=== PATIENT | male | born 1940 | race Caucasian/White ===

== ENCOUNTER → 2016-06-11 | Outpatient (REF) | payer MEDICARE ==
[2016-06-11 13:59] LABS: FERRITIN 699 NG/ML (26-388); PERCENT SATURATION 37.2 % (19.7-37.4); TOTAL IRON BINDING CAPACITY 290 UG/DL (250-450); TOTAL PROTEIN 6.7 GM/DL (6.4-8.2)
[2016-06-13 12:29] LABS: ALBUMIN 3.82 GM/DL (3.29-5.55); GAMMA GLOBULIN % 18.7 % (11.1-18.8)
== END ==
LOC: M LAB REF 12:23
PROVIDERS: ATTEND Internal Medicine Medical Oncology
DX: D64.9 Anemia, unspecified (principal)

== ENCOUNTER → 2016-07-01 | Outpatient (REF) | payer MEDICARE ==
[2016-07-01 18:10] LABS: RETIC HEMOGLOBIN CONTENT CHr 32.7 PG (24-36); RETICULOCYTE % ADVIA2120 1.3 % (0.5-1.5)
== END ==
LOC: M LAB REF 16:42
PROVIDERS: ATTEND Internal Medicine Medical Oncology
DX: D46.9 Myelodysplastic syndrome, unspecified (principal); D64.9 Anemia, unspecified

== ENCOUNTER → 2016-08-28 | Outpatient (REF) | payer MEDICARE ==
[~2016-08-28] MED LIST: AMLO10TA2 PO; ASPI81TA85 PO; ATOR1TAB21 PO; MULTTAB23 PO; OLME40TA PO; OMEP40CA2 PO; PROBCAP14 PO; TOPR100T PO; VITA-115 PO; XARE20TA PO
== END ==
LOC: M LAB REF 16:22
PROVIDERS: ATTEND Internal Medicine Medical Oncology
DX: D46.9 Myelodysplastic syndrome, unspecified (principal)

== ENCOUNTER → 2016-10-16 | Outpatient (REF) | payer MEDICARE | LOC: M LAB REF 13:30 | PROVIDERS: ATTEND Internal Medicine Medical Oncology | DX: D46.9 Myelodysplastic syndrome, unspecified (principal); D64.9 Anemia, unspecified ==

== ENCOUNTER 2016-10-18 08:12 | Outpatient (CLI) | payer MEDICARE ==
[~2016-10-18 08:12] MED LIST changes: +ACETAMINOPHEN TAB 650MG DOSE (2X325MG) PO SCH; -AMLO10TA2 PO; -ASPI81TA85 PO; -ATOR1TAB21 PO; -MULTTAB23 PO; -OLME40TA PO; -OMEP40CA2 PO; -PROBCAP14 PO; -TOPR100T PO; -VITA-115 PO; -XARE20TA PO; +diphenhydrAMINE 25 MG CAP PO SCH
[2016-10-18] MEDS ORDERED: TOPR100T PO (08:53)
[2016-10-18] MEDS ORDERED: AMLO10TA2 PO (08:54)
[2016-10-18] MEDS ORDERED: OLME40TA PO (08:55)
[2016-10-18] MEDS ORDERED: XARE20TA PO (09:06)
[2016-10-18] MEDS ORDERED: PROBCAP14 PO (09:07)
[2016-10-18] MEDS ORDERED: ASPI81TA85 PO (09:07)
[2016-10-18] MEDS ORDERED: MULTTAB23 PO (09:08)
[2016-10-18] MEDS ORDERED: ATOR1TAB21 PO (09:09)
[2016-10-18] MEDS ORDERED: OMEP40CA2 PO (09:10)
[2016-10-18] MEDS ORDERED: VITA-115 PO (09:13)
== END 2016-10-18 13:40 | disposition home or self-care (01) ==
LOC: M INFU 08:12
PROVIDERS: ATTEND Internal Medicine Medical Oncology
DX: D46.9 Myelodysplastic syndrome, unspecified (principal); D64.9 Anemia, unspecified
CPT/HCPCS: 36430; P9016

== ENCOUNTER 2016-11-04 12:21 | Outpatient (CLI) | payer MEDICARE ==
[~2016-11-04 12:21] MED LIST changes: -ACETAMINOPHEN TAB 650MG DOSE (2X325MG) PO SCH; +AMLO10TA2 PO; +ASPI81TA85 PO; +ATOR1TAB21 PO; +MULTTAB23 PO; +OLME40TA PO; +OMEP40CA2 PO; +PROBCAP14 PO; +TOPR100T PO; +VITA-115 PO; +XARE20TA PO
[2016-11-04] MEDS: ACETAMINOPHEN TAB 650MG DOSE (2X325MG) PO SCH ×2 (13:20→15:38)
== END 2016-11-04 18:40 | disposition home or self-care (01) ==
LOC: M INFU 12:21 → M PED 16:24 → M INFU 18:40
PROVIDERS: ATTEND Internal Medicine Medical Oncology
DX: D64.9 Anemia, unspecified (principal); I71.4 Abdominal aortic aneurysm, without rupture; F17.210 Nicotine dependence, cigarettes, uncomplicated; Z95.1 Presence of aortocoronary bypass graft; Z79.82 Long term (current) use of aspirin; Z79.899 Other long term (current) drug therapy
CPT/HCPCS: 36430; 86850; 86900; 86901; 86920; P9016

== ENCOUNTER → 2016-11-18 | Outpatient (REF) | payer MEDICARE ==
[~2016-11-18] MED LIST changes: -diphenhydrAMINE 25 MG CAP PO SCH
[2016-11-27 08:09] LABS: F8 ACTIVITY FOR F8 PANEL 191 % (57-163); F8 ACTIVITY vWB FOR F8 PANEL 261 % (50-200); F8 ANTIGEN FOR F8 PANEL 405 % (50-200); INTERPRETATION: Note (.)
== END ==
LOC: M LAB REF 16:32
PROVIDERS: ATTEND Internal Medicine Medical Oncology
DX: D46.9 Myelodysplastic syndrome, unspecified (principal)